=== PATIENT | male | born 1980 | race Caucasian/White ===

== ENCOUNTER → 2022-04-10 13:02 | Outpatient (CLI) | payer OTHER, MEDICAID, SELFPAY ==
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
== END ==
PROVIDERS: PCP Emergency Medicine; Visit Provider Emergency Medicine
DX: N50.89 Other specified disorders of the male genital organs (principal); M25.562 Pain in left knee
CPT/HCPCS: 73562; 76870

== ENCOUNTER → 2022-04-19 09:37 | Outpatient (CLI) | payer OTHER, MEDICAID, SELFPAY ==
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
== END ==
PROVIDERS: PCP Emergency Medicine; Visit Provider Emergency Medicine
DX: G95.19 Other vascular myelopathies (principal)
CPT/HCPCS: 72141; 72148; 76376

== ENCOUNTER 2022-04-27 14:00 | Outpatient (RCR) | payer OTHER, MEDICAID, SELFPAY ==
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
== END 2022-04-27 14:05 | disposition home or self-care (01) ==
LOC: OT 14:00
PROVIDERS: Visit Provider Emergency Medicine
DX: M25.512 Pain in left shoulder (principal); V89.2XXA Person injured in unspecified motor-vehicle accident, traffic, initial encounter
CPT/HCPCS: 97010; 97014; 97140; 97165; G0283

== ENCOUNTER 2022-04-27 14:20 | Outpatient (RCR) | payer OTHER, MEDICAID, SELFPAY | END 2022-04-27 15:30 | disposition home or self-care (01) | LOC: PT 14:20 | PROVIDERS: Visit Provider Orthopaedic Surgery | DX: M25.562 Pain in left knee (principal); V89.2XXA Person injured in unspecified motor-vehicle accident, traffic, initial encounter | CPT/HCPCS: 97760 ==

== ENCOUNTER → 2022-05-04 08:12 | Outpatient (CLI) | payer OTHER, MEDICAID, SELFPAY ==
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
[2022-05-04 15:58] LABS: Amphetamine/Metha Screen,Urine Negative ng/ml (<1000); Barbiturates Screen,Urine Negative ng/ml (<200); Benzodiazepines Screen,Urine Negative ng/ml (<200); Cannabinoid Screen,Urine Negative ng/ml (<50); Cocaine Screen,Urine Negative ng/ml (<300); Methadone Screen,Urine Negative ng/ml (<300); Opiate Screen,Urine Positive ng/ml (<300); Phencyclidine Screen,Urine Negative ng/ml (<25)
== END ==
PROVIDERS: Emergency Medicine; PCP Orthopaedic Surgery; Visit Provider Orthopaedic Surgery
DX: M25.562 Pain in left knee (principal); Z79.899 Other long term (current) drug therapy
CPT/HCPCS: 73721; 80305

== ENCOUNTER → 2022-05-04 14:41 | Outpatient (CLI) | payer OTHER, SELFPAY | PROVIDERS: PCP Emergency Medicine; Visit Provider Emergency Medicine | DX: M25.562 Pain in left knee (principal) ==

== ENCOUNTER → 2022-06-22 20:10 | Outpatient (CLI) | payer MEDICAID, SELFPAY ==
--- NOTE | 2022-06-22 | XR_ITS ---
PROCEDURE INFORMATION: Exam: XR Chest Exam date and time: 06/22/2022 8:22 PM Age: 41 years old Clinical indication: Screening exam; Pre-operative exam; Other: N/a; Additional info: Pre op TECHNIQUE: Imaging protocol: Radiologic exam of the chest. Views: 2 views. COMPARISON: MR CERVICAL SPINE WO CON 04/19/2022 9:55 AM FINDINGS: Lungs: No consolidation. Pleural spaces: No pneumothorax. Heart/Mediastinum: No cardiomegaly. Bones/joints: No acute fracture. IMPRESSION: No acute findings.
--- NOTE | 2022-06-22 20:39 | ECG_ITS ---
APPROVED REPORT Exam: Resting ECG HR:73 bpm ECG Measurements Heart Rate 73 AXES CA 154 P 55 QRSd 104 QRS 67 QT 358 T 24 QTc 383 Conclusion SINUS RHYTHM INCOMPLETE RIGHT BUNDLE BRANCH BLOCK [90+ ms QRS DURATION, TERMINAL R IN V1/V2, 40+ ms S IN I/aVL/V4/V5/V6] BORDERLINE ECG UNCONFIRMED REPORT Electronically signed by : Heriberto Fulton MD 06/25/2022 19:52:28
[2022-06-22 22:09] LABS: Basophils # 0.1 K/mm3 (0-0.2); Basophils % 0.8 % (0.1-2.0); Chloride 96 mmol/L (98-107); Eosinophils # 0.2 K/mm3 (0.0-0.4); Eosinophils % 2.3 % (0.1-12.0); Hematocrit 41.9 % (42.0-52.0); Hemoglobin 13.4 g/dL (14.1-18.0); Lymphocytes # 2.4 K/mm3 (0.7-4.5); Lymphocytes % 36.9 % (10-50); Mean Corpuscular HGB Conc 31.9 g/dL (31.8-35.4); Mean Corpuscular Hemoglobin 32.3 pg (27.0-31.2); Mean Corpuscular Volume 101.2 fl (80-94); Monocytes # 0.4 K/mm3 (0.1-1.0); Monocytes % 6.8 % (1.7-9.3); Neutrophils # 3.5 K/mm3 (1.8-7.8); Neutrophils % 53.2 % (37.0-80.0); Platelet Count 238 K/mm3 (142-424); Potassium 3.6 mmoL/L (3.5-5.1); Red Blood Count 4.14 M/mm3 (4.60-6.20); Red Cell Distribution Width 12.7 % (11.5-17.5); Sodium 137 mmol/L (136-145); White Blood Count 6.5 K/mm3 (4.8-10.8)
[2022-06-22 22:12] LABS: Anion Gap 9.6 mEq/L (5-15); Blood Urea Nitrogen 18 mg/dl (9-20); Calcium 8.7 mg/dl (8.4-10.2); Carbon Dioxide 35 mmol/L (22.0-30.0); Estimated Glomerular Filt Rate 93 ml/min (>60); GFR (African American) 113 ML/MIN (>60); Glucose 68 mg/dl (74-100)
[2022-06-22 22:53] LABS: Barbiturates Screen,Urine Negative ng/ml (<200); Benzodiazepines Screen,Urine Negative ng/ml (<200)
[2022-06-22 22:55] LABS: Cannabinoid Screen,Urine Negative ng/ml (<50); Cocaine Screen,Urine Negative ng/ml (<300)
[2022-06-22 22:56] LABS: Methadone Screen,Urine Negative ng/ml (<300); Opiate Screen,Urine Positive ng/ml (<300)
[2022-06-22 22:57] LABS: Phencyclidine Screen,Urine Negative ng/ml (<25)
[2022-07-01 11:08] LABS: Amphetamine Positive (.); Amphetamine (GC/MS) >3000 ng/mL (Cutoff=500); Amphetamines Positive (.); Methamphetamine Positive (.); Methamphetamine (GC/MS) >3000 ng/mL (Cutoff=500)
== END ==
PROVIDERS: PCP Emergency Medicine; Visit Provider Orthopaedic Surgery
DX: Z01.818 Encounter for other preprocedural examination (principal); S83.242A Other tear of medial meniscus, current injury, left knee, initial encounter; Z79.899 Other long term (current) drug therapy
CPT/HCPCS: 36415; 71046; 80048; 80305; 80324; 85025; 93005

== ENCOUNTER 2022-06-26 12:56 | Day surgery (SDC) | payer OTHER, MEDICAID, SELFPAY ==
[2022-06-21 13:44] VITALS: BMI 25.3
[2022-06-26] VITALS (11 sets, daily range): BP systolic 149–156; BP diastolic 89–99; PULSE 79–105; RESP 12–18; TEMP 36.6–43; O2SAT 96–100
--- NOTE | 2022-06-26 13:57 | EXP.ANES.CKL ---
[facility] Disclaimer: The information contained in this section may have been updated after the patient was seen, as this information can be updated by other users. Medical History Cholecystectomy planned Edema History of COVID-19 Family History Other Cancer Diabetes Heart attack Social History Smoking Status: Former smoker smoking status start date: pt dips alcohol intake: never substance use type: denies use current occupational status: employed Travel in the last 8 weeks: None [facility] Anesthesia Checklist Patient Identification Patient Identification: Arm Band and Verbal (Name & ) Structural Data Admitted From: Home Planned Operative Procedure/s: Knee arthroscopy Consent for Planned Operative Procedure(s) Verified: Yes NPO Status Verified Time NPO: 00:00 Additional verifications Anesthesia Reactions: No Hx Blood Transfusions: No Blood Transfusion Reaction: No Airway Assessment C-Spine Mobility Assessed: Yes TMJ Mobility Assessed: Yes Dentition: Good Dentition Neurological Assessment Level of Consciousness: Awake Hx Seizures: No Numbness or tingling in extremities: No Anesthesia Plan Anesthesia Risk discussed: Yes Anesthesia Plan: Verified ASA Class: II Anesthesia Type: General
--- NOTE | 2022-06-26 15:01 | P.OP_ITS ---
Date of procedure: 06/26/22 Pre-op Diagnosis:: Left knee medial meniscus tear Post-op Diagnosis:: Left knee medial meniscus tear Procedure performed:: Left knee arthroscopy with partial medial meniscectomy Surgeon:: Lul Schilling MD MARK[employer] GARDENER:: Abeba Claudio Anesthesia: local and LMA Estimated blood loss (mL): 5 Clinical Note:: Jose is a pleasant 41-year-old male who has been dealing with left knee pain. MRI revealed horizontal cleavage tear posterior horn medial meniscus. We discussed all the risks, benefits and alternatives to left knee arthroscopy for partial medial meniscectomy and he agreed to proceed. Surgical consent form was signed. Operative findings:: Left knee horizontal cleavage tear posterior horn medial meniscus. No significant chondromalacia. Ligaments are intact. Operative note:: The patient was seen in the preoperative holding area. Left knee was marked to confirm the correct operative site. He was seen by anesthesia. He received Ancef 2 g IV prophylactic antibiotics within 1 hour of incision time. He was brought back to the OR. General anesthesia induced without difficulty. Left lower extremity prepped and draped in usual sterile fashion. Timeout performed to confirm left knee arthroscopy for patient Jose Cruz. I made an anterior lateral viewing portal with an 11 blade scalpel. Arthroscope was introduced into the knee joint. I then made an anteromedial portal localizing this with a spinal needle and this incision was made with the 11 blade as well and dilated with a trocar. Diagnostic arthroscopy commenced. He was seen to have a horizontal cleavage tear posterior horn medial meniscus. This was treated with a partial medial meniscectomy using combination of the upbiter and 3.5 mm shaver to resect the unstable inferior flap. We then resected the inner one third of the posterior horn of the medial meniscus back to a smooth stable border with a smooth transition to intact body of the medial meniscus. There was no significant chondromalacia. Cruciate ligaments were seen to be intact. Evaluation of lateral compartment revealed lateral meniscus intact and no significant chondromalacia. At this time arthroscopy instruments removed from the joint. Arthroscopy fluid suctioned and drained from the joint. Portals were closed with 4-0 Monocryl subcuticular sutures. I injected 20 cc of half percent Naropin from the superolateral approach for local anesthetic. Sterile dressing was applied with Steri-Strips, 4 x 4's, ABD, soft roll and Samm bandage. Anesthesia reversed without difficulty and the patient was transferred to recovery in stable condition. All sponge needle counts correct x2. Tourniquet time (min): 0 Condition: stable Disposition: PACU Specimens:: None Complications:: None
--- NOTE | 2022-06-26 15:02 | P.PNANES_ITS ---
[facility] Anesthesia Record Part I Anesthesia Record I Intake, IV Amount: 400 Estimated blood loss (mL): 5 Urine output (mL): 0 Blood Pressure: 156/93 SaO2: 97 Pulse Rate: 89 Respiratory Rate: 12 Temperature: 98.1 F Patient is:: Drowsy and Oral/Nasal airway Stable to PACU at:: 15:00
[2022-07-02 08:13] VITALS: BP 153/92; PULSE 89; TEMP 36.6
--- NOTE | 2022-07-02 08:13 | EXP.ANES.II ---
[facility] Anesthesia Record Part II Anesthesia Record Part II Discharge Time: 15:40 Destination: Surgical Day Care (OP Surgery) PACU nurse assessment reviewed?: Yes Patient Condition:: Good Anesthesia Complications:: None Swallowing reflex intact?: Yes Cyanosis?: No Blood Pressure: 153/92 Pulse Rate: 89 Temperature: 97.8 F Mental Status: Alert & Oriented Pain level:: 4 Nausea and/or vomitting:: None Intake, IV Amount: 0
== END 2022-06-26 16:16 | disposition home or self-care (01) ==
PROVIDERS: PCP Emergency Medicine; Visit Provider Orthopaedic Surgery
PROC: (CPT 29870; principal; 2022-06-26 14:15)
DX: S83.242A Other tear of medial meniscus, current injury, left knee, initial encounter; M25.562 Pain in left knee; Z87.891 Personal history of nicotine dependence; V89.2XXA Person injured in unspecified motor-vehicle accident, traffic, initial encounter
CPT/HCPCS: 29881; 96374

== ENCOUNTER → 2022-07-09 11:48 | Outpatient (CLI) | payer MEDICAID, SELFPAY ==
[2022-07-09 15:18] LABS: Barbiturates Screen,Urine Negative ng/ml (<200)
[2022-07-09 15:19] LABS: Amphetamine/Metha Screen,Urine Negative ng/ml (<1000); Benzodiazepines Screen,Urine Negative ng/ml (<200)
[2022-07-09 15:20] LABS: Cocaine Screen,Urine Negative ng/ml (<300)
[2022-07-09 15:21] LABS: Cannabinoid Screen,Urine Negative ng/ml (<50); Methadone Screen,Urine Negative ng/ml (<300)
[2022-07-09 15:22] LABS: Opiate Screen,Urine Negative ng/ml (<300); Phencyclidine Screen,Urine Negative ng/ml (<25)
== END ==
PROVIDERS: PCP Emergency Medicine; Visit Provider Emergency Medicine
DX: R82.5 Elevated urine levels of drugs, medicaments and biological substances (principal)
CPT/HCPCS: 80305

== ENCOUNTER → 2022-08-22 23:14 | Outpatient (CLI) | payer MEDICAID, SELFPAY ==
[2022-08-22 13:31] LABS: Basophils % 0.5 % (0.1-2.0); Eosinophils # 0.1 K/mm3 (0.0-0.4); Eosinophils % 2.4 % (0.1-12.0); Hematocrit 44.7 % (42.0-52.0); Hemoglobin 14.8 g/dL (14.1-18.0); Lymphocytes # 1.6 K/mm3 (0.7-4.5); Mean Corpuscular HGB Conc 33.2 g/dL (31.8-35.4); Mean Corpuscular Hemoglobin 32.5 pg (27.0-31.2); Mean Corpuscular Volume 97.8 fl (80-94); Mean Platelet Volume 8.3 fl (7.4-10.4); Monocytes # 0.4 K/mm3 (0.1-1.0); Monocytes % 7.3 % (1.7-9.3); Neutrophils # 3.7 K/mm3 (1.8-7.8); Neutrophils % 62.8 % (37.0-80.0); Platelet Count 239 K/mm3 (142-424); Red Blood Count 4.57 M/mm3 (4.60-6.20); Red Cell Distribution Width 12.1 % (11.5-17.5); White Blood Count 5.8 K/mm3 (4.8-10.8)
[2022-08-22 13:41] LABS: Alanine Aminotransferase 23 U/L (12-78); Albumin Level 4.4 g/dl (3.5-5.0); Albumin/Globulin Ratio 1.7 (1.1-1.8); Alkaline Phosphatase 54 U/L (38-126); Anion Gap 16.4 mEq/L (5-15); Aspartate Amino Transferase 27 U/L (17-59); Bilirubin,Total 0.7 mg/dl (0.2-1.3); Blood Urea Nitrogen 11 mg/dl (9-20); Calcium 9.1 mg/dl (8.4-10.2); Carbon Dioxide 28 mmol/L (22.0-30.0); Chloride 100 mmol/L (98-107); Chol/HDL Ratio 2.2 (1-3.5); Cholesterol 118 mg/dl (140-200); Estimated Glomerular Filt Rate 124 ml/min (>60); GFR (African American) 150 ML/MIN (>60); Globulin 2.6 g/dL (1.3-3.2); Glucose 94 mg/dl (74-100); HDL Cholesterol 53 mg/dl (40-60); Potassium 4.4 mmoL/L (3.5-5.1); Sodium 140 mmol/L (136-145); Triglycerides 28 mg/dl (30-150); VLDL Cholesterol 6 mg/dL (0-40)
[2022-08-22 13:51] LABS: Direct LDL Cholesterol 54.76 mg/dL (100-129)
[2022-08-22 13:57] LABS: 25-OH Vitamin D, Total 51.4 ng/mL (30-100)
[2022-08-22 13:59] LABS: Erythrocyte Sedimentation Rate 5 mm/hr (0-15)
[2022-08-22 14:03] LABS: T4 (Thyroxine) 8.1 ug/dl (5.53-11.0)
== END ==
PROVIDERS: PCP Emergency Medicine; Visit Provider Emergency Medicine
DX: G89.29 Other chronic pain (principal); R51.9 Headache, unspecified; M54.12 Radiculopathy, cervical region; M54.16 Radiculopathy, lumbar region; M25.562 Pain in left knee
CPT/HCPCS: 80053; 80061; 82306; 84436; 84443; 85025; 85651

== ENCOUNTER → 2022-10-22 13:25 | Outpatient (CLI) | payer MEDICAID, SELFPAY ==
[2022-10-22 14:39] LABS: Benzodiazepines Screen,Urine Negative ng/ml (<200)
[2022-10-22 14:40] LABS: Cannabinoid Screen,Urine Negative ng/ml (<50)
[2022-10-22 14:42] LABS: Methadone Screen,Urine Negative ng/ml (<300)
[2022-10-22 14:43] LABS: Opiate Screen,Urine Negative ng/ml (<300); Phencyclidine Screen,Urine Negative ng/ml (<25)
[2022-10-22 15:36] LABS: Cocaine Screen,Urine Negative ng/ml (<300)
[2022-10-22 15:38] LABS: Barbiturates Screen,Urine Negative ng/ml (<200)
[2022-10-22 17:25] LABS: Amphetamine/Metha Screen,Urine Positive ng/ml (<1000)
== END ==
PROVIDERS: PCP Emergency Medicine; Visit Provider Emergency Medicine
DX: Z79.899 Other long term (current) drug therapy (principal)
CPT/HCPCS: 80305

== ENCOUNTER → 2022-11-29 16:38 | Outpatient (CLI) | payer MEDICAID, SELFPAY ==
[2022-11-29 14:12] LABS: Benzodiazepines Screen,Urine Negative ng/ml (<200)
[2022-11-29 14:13] LABS: Amphetamine/Metha Screen,Urine Negative ng/ml (<1000); Barbiturates Screen,Urine Negative ng/ml (<200)
[2022-11-29 14:14] LABS: Methadone Screen,Urine Negative ng/ml (<300)
[2022-11-29 14:15] LABS: Cannabinoid Screen,Urine Negative ng/ml (<50); Cocaine Screen,Urine Negative ng/ml (<300)
[2022-11-29 14:17] LABS: Opiate Screen,Urine Positive ng/ml (<300); Phencyclidine Screen,Urine Negative ng/ml (<25)
== END ==
PROVIDERS: PCP Emergency Medicine; Visit Provider Emergency Medicine
DX: M25.512 Pain in left shoulder (principal)
CPT/HCPCS: 80305

== ENCOUNTER → 2023-01-23 23:36 | Outpatient (CLI) | payer MEDICAID, SELFPAY ==
[2023-01-23 20:30] LABS: Amphetamine/Metha Screen,Urine Negative ng/ml (<1000)
[2023-01-23 20:31] LABS: Barbiturates Screen,Urine Negative ng/ml (<200)
[2023-01-23 20:40] LABS: Benzodiazepines Screen,Urine Negative ng/ml (<200)
[2023-01-23 20:42] LABS: Cannabinoid Screen,Urine Negative ng/ml (<50); Cocaine Screen,Urine Negative ng/ml (<300)
[2023-01-23 20:43] LABS: Methadone Screen,Urine Negative ng/ml (<300)
[2023-01-23 20:44] LABS: Opiate Screen,Urine Negative ng/ml (<300); Phencyclidine Screen,Urine Negative ng/ml (<25)
== END ==
PROVIDERS: PCP Emergency Medicine; Visit Provider Emergency Medicine
DX: Z79.899 Other long term (current) drug therapy (principal)
CPT/HCPCS: 80305

== ENCOUNTER → 2023-02-13 13:33 | Outpatient (CLI) | payer MEDICAID, SELFPAY ==
[2023-02-13 14:27] LABS: Amphetamine/Metha Screen,Urine Negative ng/ml (<1000)
[2023-02-13 14:28] LABS: Barbiturates Screen,Urine Negative ng/ml (<200)
[2023-02-13 14:29] LABS: Benzodiazepines Screen,Urine Negative ng/ml (<200); Methadone Screen,Urine Negative ng/ml (<300)
[2023-02-13 14:30] LABS: Cannabinoid Screen,Urine Negative ng/ml (<50)
[2023-02-13 14:31] LABS: Cocaine Screen,Urine Negative ng/ml (<300); Opiate Screen,Urine Negative ng/ml (<300)
[2023-02-13 14:32] LABS: Phencyclidine Screen,Urine Negative ng/ml (<25)
== END ==
PROVIDERS: PCP Emergency Medicine; Visit Provider Emergency Medicine
DX: Z79.899 Other long term (current) drug therapy (principal)
CPT/HCPCS: 80305

== ENCOUNTER 2023-04-18 21:53 | Outpatient (CLI) | payer MEDICAID, SELFPAY ==
[2023-04-18 20:53] LABS: Amphetamine/Metha Screen,Urine Negative ng/ml (<1000)
[2023-04-18 20:54] LABS: Barbiturates Screen,Urine Negative ng/ml (<200); Benzodiazepines Screen,Urine Negative ng/ml (<200)
[2023-04-18 20:55] LABS: Cannabinoid Screen,Urine Negative ng/ml (<50)
[2023-04-18 20:56] LABS: Cocaine Screen,Urine Negative ng/ml (<300); Methadone Screen,Urine Negative ng/ml (<300)
[2023-04-18 20:58] LABS: Opiate Screen,Urine Negative ng/ml (<300)
[2023-04-18 20:59] LABS: Phencyclidine Screen,Urine Negative ng/ml (<25)
[2023-04-22 18:33] LABS: Opiates Negative (Cutoff=100)
== END 2023-04-18 23:59 ==
LOC: LAB.DROPOF 21:54
PROVIDERS: PCP Family Medicine; Visit Provider Family Medicine
DX: Z79.899 Other long term (current) drug therapy (principal)
CPT/HCPCS: 80307; 80361; 80365; G0480

== ENCOUNTER 2023-08-23 11:34 | Outpatient (CLI) | payer MEDICAID, SELFPAY ==
[2023-08-23 18:20] LABS: Basophils # 0.1 K/mm3 (0-0.2); Basophils % 0.7 % (0.1-2.0); Eosinophils # 0.1 K/mm3 (0.0-0.4); Hematocrit 41.5 % (42.0-52.0); Hemoglobin 13.7 g/dL (14.1-18.0); Lymphocytes # 1.9 K/mm3 (0.7-4.5); Lymphocytes % 27.6 % (10-50); Mean Corpuscular HGB Conc 33.1 g/dL (31.8-35.4); Mean Corpuscular Volume 99.9 fl (80-94); Mean Platelet Volume 10.9 fl (7.4-10.4); Monocytes # 0.5 K/mm3 (0.1-1.0); Monocytes % 6.9 % (1.7-9.3); Neutrophils # 4.4 K/mm3 (1.8-7.8); Neutrophils % 62.7 % (37.0-80.0); Platelet Count 225 K/mm3 (142-424); Red Blood Count 4.15 M/mm3 (4.60-6.20); Red Cell Distribution Width 12.8 % (11.5-17.5)
[2023-08-23 19:40] LABS: Chloride 104 mmol/L (98-107); Potassium 3.6 mmoL/L (3.5-5.1); Sodium 140 mmol/L (136-145)
[2023-08-23 19:42] LABS: Alanine Aminotransferase 30 U/L (12-78); Alkaline Phosphatase 70 U/L (38-126); Aspartate Amino Transferase 45 U/L (17-59); Bilirubin,Total 0.9 mg/dl (0.2-1.3); Blood Urea Nitrogen 19 mg/dl (9-20); Estimated Glomerular Filt Rate 92 ml/min (>60); GFR (African American) 111 ML/MIN (>60)
[2023-08-23 19:43] LABS: Albumin Level 4.7 g/dl (3.5-5.0); Albumin/Globulin Ratio 1.6 (1.1-1.8); Anion Gap 14.6 mEq/L (5-15); Calcium 9.6 mg/dl (8.4-10.2); Carbon Dioxide 25 mmol/L (22.0-30.0); Chol/HDL Ratio 3.1 (1-3.5); Cholesterol 147 mg/dl (140-200); Glucose 107 mg/dl (74-100); HDL Cholesterol 48 mg/dl (40-60); Iron 63 ug/dL (49-181); Total Protein,Serum 7.7 g/dl (6.3-8.2); Triglycerides 69 mg/dl (30-150); VLDL Cholesterol 14 mg/dL (0-40)
[2023-08-23 19:53] LABS: Total Iron Binding Capacity 284 ug/dL (261-462)
[2023-08-23 20:02] LABS: Free Thyroxine Index 2.7 ug/dL (5.93-13.13); T4 (Thyroxine) 8.7 ug/dl (5.53-11.0); Triiodothryronine (T3) Uptake 31 % (23.5-40.5)
[2023-08-23 20:04] LABS: 25-OH Vitamin D, Total 44.4 ng/mL (30-100)
[2023-08-23 20:14] LABS: Prostate Specific Ag Screen 1.2 ng/ml (0.0-4.0)
[2023-08-23 20:15] LABS: Thyroid Stimulating Hormone 0.59 uIU/mL (0.465-4.68)
== END 2023-08-23 23:59 | disposition home or self-care (01) ==
LOC: LAB.DROPOF 08-24 11:34
PROVIDERS: PCP Family Medicine; Visit Provider Family Medicine
DX: I10 Essential (primary) hypertension (principal); R79.1 Abnormal coagulation profile; E07.9 Disorder of thyroid, unspecified; E66.9 Obesity, unspecified; Z68.29 Body mass index [BMI] 29.0-29.9, adult; N41.9 Inflammatory disease of prostate, unspecified; Z12.5 Encounter for screening for malignant neoplasm of prostate; Z79.899 Other long term (current) drug therapy
CPT/HCPCS: 80053; 80061; 82306; 83540; 83550; 84436; 84443; 84479; 85025; G0103

== ENCOUNTER 2024-06-11 14:48 | Outpatient (CLI) | payer MEDICAID, SELFPAY ==
[2024-06-11 19:51] LABS: Basophils % 0.6 % (0.1-2.0); Eosinophils # 0.1 K/mm3 (0.0-0.4); Eosinophils % 2.2 % (0.1-12.0); Hematocrit 40.4 % (42.0-52.0); Hemoglobin 13.4 g/dL (14.1-18.0); Lymphocytes # 1.4 K/mm3 (0.7-4.5); Lymphocytes % 26.2 % (10-50); Mean Corpuscular HGB Conc 33.2 g/dL (31.8-35.4); Mean Corpuscular Hemoglobin 31.3 pg (27.0-31.2); Mean Corpuscular Volume 94.4 fl (80-94); Mean Platelet Volume 10.5 fl (7.4-10.4); Monocytes # 0.5 K/mm3 (0.1-1.0); Monocytes % 8.8 % (1.7-9.3); Neutrophils # 3.4 K/mm3 (1.8-7.8); Platelet Count 221 K/mm3 (142-424); Red Blood Count 4.28 M/mm3 (4.60-6.20); Red Cell Distribution Width 11.8 % (11.5-17.5); White Blood Count 5.5 K/mm3 (4.8-10.8)
[2024-06-11 20:06] LABS: Alanine Aminotransferase 20 U/L (12-78); Albumin Level 4.5 g/dl (3.5-5.0); Albumin/Globulin Ratio 1.8 (1.1-1.8); Alkaline Phosphatase 53 U/L (38-126); Anion Gap 9.4 mEq/L (5-15); Aspartate Amino Transferase 24 U/L (17-59); Bilirubin,Total 0.5 mg/dl (0.2-1.3); Blood Urea Nitrogen 18 mg/dl (9-20); Carbon Dioxide 30 mmol/L (22.0-30.0); Chloride 101 mmol/L (98-107); Chol/HDL Ratio 2.6 (1-3.5); Cholesterol 130 mg/dl (140-200); Estimated Glomerular Filt Rate 92 ml/min (>60); GFR (African American) 111 ML/MIN (>60); Globulin 2.5 g/dL (1.3-3.2); Glucose 81 mg/dl (74-100); HDL Cholesterol 50 mg/dl (40-60); Potassium 4.4 mmoL/L (3.5-5.1); Sodium 136 mmol/L (136-145); Triglycerides 37 mg/dl (30-150); VLDL Cholesterol 7 mg/dL (0-40)
[2024-06-11 20:10] LABS: 25-OH Vitamin D, Total 37.9 ng/mL (30-100)
[2024-06-11 20:22] LABS: Direct LDL Cholesterol 62.57 mg/dL (100-129)
[2024-06-11 20:45] LABS: Thyroid Stimulating Hormone 1.47 uIU/mL (0.465-4.68)
[2024-06-12 09:06] LABS: Prostate Specific Ag, Diagnost 0.453 ng/ml (0.0-4.0)
[2024-06-12 20:18] LABS: Chlamydia trachomatis Negative (Negative); Neisseria gonorrhoeae Negative (Negative); Trichomonas vaginalis Negative (Negative)
[2024-06-13 18:58] LABS: Peripheral Smear Review Scanned Result
== END 2024-06-11 23:59 | disposition home or self-care (01) ==
LOC: LAB.DROPOF 06-12 12:53
PROVIDERS: PCP Family Medicine; Visit Provider Family Medicine
DX: N41.9 Inflammatory disease of prostate, unspecified (principal); Z20.2 Contact with and (suspected) exposure to infections with a predominantly sexual mode of transmission
CPT/HCPCS: 80053; 80061; 82306; 84153; 84443; 85025; 87491; 87591; 87661